=== PATIENT | male | born 1995 | race Caucasian/White ===

== ENCOUNTER 2016-08-27 09:36 | Day surgery (SDC) | payer OTHER ==
[2016-08-22 14:32] VITALS: BMI 28.7
[2016-08-27] MEDS ORDERED: MIDAZOLAM HCL 2 MG/2 ML SINGLE DOSE VIAL ONE (10:23)
[2016-08-27] MEDS ORDERED: ONDANSETRON 4 MG/2 ML VIAL ONE (10:23)
[2016-08-27] MEDS ORDERED: ceFAZolin SODIUM 1 GM VIAL ONE (10:23)
[2016-08-27] MEDS ORDERED: DEXAMETHASONE SOD PHOSPHATE 4 MG/1 ML VIAL ONE (10:23)
[2016-08-27] MEDS ORDERED: ROCURONIUM BROMIDE 50 MG/5 ML VIAL ONE ×2 (10:23→11:50)
[2016-08-27] MEDS ORDERED: PROPOFOL 20 ML ONE (10:23)
[2016-08-27] MEDS ORDERED: THROMBIN (BOVINE) 5,000 UNIT VIAL TP ONE ×2 (11:15→12:12)
[2016-08-27] MEDS ORDERED: GELATIN, ABSORBABLE 100 EACH SPONGE TP ONE (12:48)
[2016-08-27] MEDS ORDERED: OXYCODONE/APAP 5/325MG COMBO TABLET PO PRN ×2 (14:25)
[2016-08-27] MEDS ORDERED: SODIUM CHLORIDE 0.45% 1,000 ML IV SCH (14:30)
[2016-08-27] MEDS ORDERED: ONDANSETRON 4 MG/2 ML VIAL IVPUSH PRN (14:34)
[2016-08-27] MEDS ORDERED: ONDANSETRON 4 MG/2 ML VIAL IVPUSH ONE (14:45)
[2016-08-27] MEDS ORDERED: OXYCODONE/APAP 5/325MG COMBO TABLET PO ONE (15:14)
[2016-08-27] MEDS ORDERED: OXYCODONE/APAP 5/325MG COMBO TABLET ONE (16:15)
[2016-08-27] MEDS ORDERED: ceFAZolin 2 GRAM PREMIX BAG IVPB SCH (18:00)
[2016-08-27 18:36] VITALS: BP 144/72; PULSE 68; TEMP 98.5
--- NOTE | 2016-08-28 08:25 | OP ---
DATE OF OPERATION: 08/27/2016 PREOPERATIVE DIAGNOSIS: 1. Intervertebral disc displacement, lumbar spine. 2. Chronic right lower extremity lumbar radiculopathy. POSTOPERATIVE DIAGNOSIS: 1. Intervertebral disc displacement, lumbar spine. 2. Chronic right lower extremity lumbar radiculopathy. PROCEDURES PERFORMED: Right microlumbar discectomy at L4-L5 SURGEON: Cordell Reyes MD ANESTHESIA: General. INDICATIONS: The patient is a 20-year-old male with approximately a year and a half history of persistent and severe radicular pain down the right lower extremity. I have diagnosed him with a large herniated disc. He has been refractory to management with physical therapy, and he has been symptomatic greater than a year. I had recommended surgery for him several months ago. However, the patient was trying to avoid it. He continues with severe radicular pain. He is indicated for microlumbar discectomy. Risks, benefits, and alternatives were discussed in detail with the patient, and informed consent was obtained. He understands that there is an increased risk of residual symptoms given the duration of his radiculopathy without treatment. All questions were answered. Informed consent was obtained. DESCRIPTION OF PROCEDURE: The patient was brought into the operating room via stretcher, and general endotracheal anesthesia was administered by the anesthesiologist. The patient was then flipped into the prone position onto the padded Jonn frame. All bony prominences were padded. Fluoroscopic C-arm was placed to allow for intraoperative lateral fluoroscopic radiographs. The back was then prepped and draped in the usual sterile fashion. Prophylactic IV antibiotics were administered, and a time-out was performed. A localizing radiography was taken, and a midline incision was then made at the appropriate level. Dissection was carried down to the level of the fascia, and the fascia was then split electrocautery exposing the right L4 hemilamina. A deep retractor was then placed. A hemilaminotomy was then performed with a partial medial facetectomy and foraminotomy. The ligamentum flavum was excised under the microscope. Disc herniation was localized, and it was excised with the pituitary. Excellent decompression of the nerve root was noted. Excellent hemostasis was achieved. The wound was then copiously irrigated. Deep fascia was closed with No. 1 Vicryl suture. The deep dermal tissue was approximated with 2-0 Vicryl suture. The skin was closed with a running 2-0 nylon suture. Patient tolerated the procedure well without complications. Theodore ERAZO/[id number]
[2016-08-28] MEDS ORDERED: CYANOCOBALAMIN 1,000 MCG TABLET (FP) PO SCH (10:00)
[2016-08-28] MEDS ORDERED: PATIENT'S OWN MEDICATION (NON-FORMULARY) (Cyanocobalamin (Vitamin B-12) [Vitamin B12] 2,50 PO SCH (10:00)
[2016-08-28] MEDS ORDERED: PATIENT'S OWN MEDICATION (NON-FORMULARY) (Folic Acid [Folic Acid] 0.4 MG) PO SCH (10:00)
--- NOTE | 2016-08-29 16:28 | PATH ---
Surgical Pathology Report Patient Name: KRYS VENTURA [facility]. Rec. #: [id number] /Age/Gender: 1995 (Age: 20) / M Account: [id number] Location: [facility] AMBULATORY Taken: 08/27/2016 Received: 08/27/2016 Reported: 08/29/2016 Physicians: Cordell Reyes M.D. Specimen(s) Received L4-5 DISC Clinical History Lumbar radiculopathy Final Diagnosis L4-5 DISC, DISCECTOMY: CARTILAGE WITH DEGENERATIVE CHANGES. Electronically Signed Kamila Moy M.D. Gross Description Received in formalin, labeled "L4-5 disc," is a 1.2 x 0.9 x 0.2 cm aggregate of ace fragments of fibrocartilaginous tissue. The specimen is submitted in toto in one cassette. /08/28/201608/28/2016
== END 2016-08-27 18:40 | disposition home or self-care (01) ==
LOC: FASU 09:36
PROVIDERS: ATTEND Orthopaedic Surgery Orthopaedic Surgery of the Spine
PROC: 01NB0ZZ Release Lumbar Nerve, Open Approach (ICD-10-PCS; 2016-08-27)
PROC: 0SB20ZZ Excision of Lumbar Vertebral Disc, Open Approach (ICD-10-PCS; principal; 2016-08-27 11:45)
DX: M51.16 Intervertebral disc disorders with radiculopathy, lumbar region (principal)
CPT/HCPCS: 72100-TC; 76001-TC; 88304-TC; 94760

== ENCOUNTER 2020-08-14 09:51 | Day surgery (SDC) | payer OTHER ==
[2020-08-08 15:30] VITALS: BMI 32.1
[2020-08-14] MEDS ORDERED: MIDAZOLAM HCL 2 MG/2 ML SINGLE DOSE VIAL ONE (11:02)
[2020-08-14] MEDS ORDERED: PROPOFOL 20 ML ONE ×2 (11:02→11:36)
[2020-08-14] MEDS ORDERED: ONDANSETRON 4 MG/2 ML VIAL IVPUSH PRN (12:58)
[2020-08-14] MEDS ORDERED: oxyCODONE HCL 5 MG TABLET PO PRN (12:58)
[2020-08-14] MEDS ORDERED: LACTATED RINGERS SOLUTION 1,000 ML IV SCH (13:00)
[2020-08-14] MEDS ORDERED: oxyCODONE HCL 5 MG TABLET ONE (13:41)
[2020-08-14 14:43] VITALS: TEMP 98.1
[2020-08-14 14:58] VITALS: BP 137/66; PULSE 78
== END 2020-08-14 14:50 | disposition home or self-care (01) ==
LOC: FASU 09:51
PROVIDERS: ATTEND Orthopaedic Surgery Sports Medicine
PROC: 0SCC4ZZ Extirpation of Matter from Right Knee Joint, Percutaneous Endoscopic Approach (ICD-10-PCS; 2020-08-14)
PROC: 0SH Lower Joints, Insertion (ICD-10-PCS; principal; 2020-08-14 11:35)
DX: T84.126A Displacement of internal fixation device of bone of right lower leg, initial encounter (principal); Y79.8 Miscellaneous orthopedic devices associated with adverse incidents, not elsewhere classified; Y92.9 Unspecified place or not applicable; M93.261 Osteochondritis dissecans, right knee
CPT/HCPCS: 88300-TC; 94760

== ENCOUNTER 2020-09-21 18:25 | Emergency (ER) | payer OTHER | END 2020-09-21 19:52 | disposition home or self-care (01) | LOC: JVIRT 18:25 | DX: R51.9 Headache, unspecified (principal) | CPT/HCPCS: C9803; G2012-GT; U0003 ==

== ENCOUNTER 2020-10-01 11:46 | Emergency (ER) | payer OTHER | END 2020-10-01 12:21 | disposition home or self-care (01) | LOC: JVIRT 11:46 | DX: Z20.822 Contact with and (suspected) exposure to COVID-19 (principal) | CPT/HCPCS: C9803; G2251-GT; Q3014-GT; U0003 ==

== ENCOUNTER 2020-11-12 10:52 | Emergency (ER) | payer OTHER | END 2020-11-12 11:41 | disposition home or self-care (01) | LOC: JVIRT 10:52 | DX: Z20.822 Contact with and (suspected) exposure to COVID-19 (principal) | CPT/HCPCS: C9803; G2251-GT; U0003 ==